=== PATIENT | female | born 1960 ===

== ENCOUNTER 2021-02-18 11:15 | Inpatient (IN) | payer OTHER ==
[~2021-02-18] VITALS: Ht 165.1 cm; Wt 56.7 kg
[2021-02-18] MEDS ORDERED: ZESTRIL20 MG PO (13:20)
[2021-02-18] MEDS ORDERED: KEPPRA500 MG PO (13:20)
[2021-02-18] MEDS ORDERED: SIMVASTATIN10 MG PO (13:20)
[2021-02-18] MEDS ORDERED: ARICEPT5 MG PO (13:21)
[2021-02-18] MEDS ORDERED: NAMENDA5 MG PO (13:21)
[2021-02-18] MEDS ORDERED: CLONAZEPAM0.5 MG PO (13:22)
[2021-02-18] MEDS ORDERED: HYDROCHLOROTH12.5 MG PO (13:22)
[2021-02-18] MEDS ORDERED: LEXAPRO5 MG PO (13:22)
[2021-02-28] MEDS ORDERED: ESCITALOPRAM OX20 MG (15:54)
[2021-02-28] MEDS ORDERED: DONEPEZIL HCL10 MG (15:54)
[2021-02-28] MEDS ORDERED: HYDROCHLOROTHIA25 MG (15:54)
[2021-02-28] MEDS ORDERED: MEMANTINE HCL10 MG (15:54)
[2021-03-05] MEDS ORDERED: PROTONIX40 MG PO (14:05)
[2021-03-05] MEDS ORDERED: INTESTINEX680 M1 PO (14:05)
[2021-03-05] MEDS ORDERED: ULTRACET PO (14:05)
== END 2021-03-05 14:11 | disposition home or self-care (01) | DRG 330 ==
LOC: SURH 02-21 07:00 → O/R 02-28 08:28 → SURH 02-28 20:07
PROVIDERS: ADMIT Surgery; ATTEND Surgery
PROC: 0DBM0ZZ Excision of Descending Colon, Open Approach (ICD-10-PCS; principal; 2021-02-28)
PROC: 0WJP4ZZ Inspection of Gastrointestinal Tract, Percutaneous Endoscopic Approach (ICD-10-PCS; 2021-02-28)
PROC: 0UT60ZZ Resection of Left Fallopian Tube, Open Approach (ICD-10-PCS; 2021-02-28)
PROC: 0UT10ZZ Resection of Left Ovary, Open Approach (ICD-10-PCS; 2021-02-28)
PROC: 0DTJ0ZZ Resection of Appendix, Open Approach (ICD-10-PCS; 2021-02-28)
PROC: 30233N1 Transfusion of Nonautologous Red Blood Cells into Peripheral Vein, Percutaneous Approach (ICD-10-PCS; 2021-03-03)
DX: K57.20 Diverticulitis of large intestine with perforation and abscess without bleeding (principal); D62 Acute posthemorrhagic anemia; N83.312 Acquired atrophy of left ovary; Z53.31 Laparoscopic surgical procedure converted to open procedure; Z43.3 Encounter for attention to colostomy

== ENCOUNTER 2021-02-28 08:05 | Outpatient (CLI) | payer OTHER ==
[~2021-02-28 08:05] MED LIST: ARICEPT5 MG PO; CLONAZEPAM0.5 MG PO; HYDROCHLOROTH12.5 MG PO; KEPPRA500 MG PO; LEXAPRO5 MG PO; NAMENDA5 MG PO; SIMVASTATIN10 MG PO; ZESTRIL20 MG PO
[2021-02-28] MEDS ORDERED: HYDROCHLOROTHIA25 MG (15:54)
[2021-02-28] MEDS ORDERED: DONEPEZIL HCL10 MG (15:54)
[2021-02-28] MEDS ORDERED: MEMANTINE HCL10 MG (15:54)
[2021-02-28] MEDS ORDERED: ESCITALOPRAM OX20 MG (15:54)
== END 2021-02-28 18:00 | disposition home or self-care (01) ==
LOC: LAB 08:05
PROVIDERS: ATTEND Surgery
DX: Z03.818 Encounter for observation for suspected exposure to other biological agents ruled out (principal); K57.20 Diverticulitis of large intestine with perforation and abscess without bleeding; R19.4 Change in bowel habit; Z93.3 Colostomy status